=== PATIENT | male | born 1965 | race Caucasian/White ===

== ENCOUNTER 2022-10-04 07:30 | Observation (INO) ==
[~2022-10-04 07:30] MED LIST: Buffered Lidocaine 1% SYRIN 1 ml INTRADERM ONE; HYDROcodone/ACETAMIN 5/325 mg TAB PO PRN; Lactated Ringers 1000 ml BAG 1,000 ML IV SCH; Metoclopramide 5 MG/ML VIAL (10 mg) IV PRN; Naloxone 0.4 mg VIAL 0.4 mg/ml 1 ml VIAL IV PRN; Ondansetron 4 mg VIAL 2 MG/ML 2 ml VIAL IV PRN
[2022-10-04] MEDS ORDERED: ceFAZolin *3* GM in NS PREMIX 3 GM/100 ML BAG IV ONE (08:31)
[2022-10-04 08:58] LABS: Rapid COVID-19 Molecular Undetected (Undetected)
[2022-10-04] MEDS ORDERED: Carbidopa/Levodop 25/100 MG TAB PO ONE ×2 (09:00→13:00)
[2022-10-04] MEDS ORDERED: Propofol 10 MG/ML 20 ML BTL ONE ×2 (09:02→12:10)
[2022-10-04] MEDS ORDERED: Lidocaine 2% PF 5 ML VIAL ONE (09:05)
[2022-10-04] MEDS ORDERED: Dexamethasone IV 4 MG/ML VIAL 1 ml VIAL ONE (10:42)
[2022-10-04] MEDS ORDERED: Midazolam 2 mg/2 ml VIAL 1 mg/ml 2 ml VIAL (2 mg) ONE (10:42)
[2022-10-04] MEDS ORDERED: ROPIVACAINE 5 MG/ML 30 ML BTL (0.5%) ONE (10:42)
[2022-10-04] MEDS ORDERED: fentaNYL 100 mcg/2 ml 50 MCG/ML VIAL ONE ×3 (10:42→14:31)
[2022-10-04] MEDS ORDERED: Carbidopa/Levodop CR 50/200 TAB.CR PO ONE (11:00)
[2022-10-04] MEDS ORDERED: fentaNYL 250 mcg/5 ml 50 MCG/ML 5 ml VIAL (250 MCG) ONE (11:02)
[2022-10-04] MEDS ORDERED: HYDROmorphone 0.5 MG/0.5 ML SYRINGE ONE (11:46)
[2022-10-04] MEDS ORDERED: Glycopyrrolate IV 0.2 MG/ML 1 ML VIAL ONE (11:49)
[2022-10-04] MEDS ORDERED: Ondansetron 4 mg VIAL 2 MG/ML 2 ml VIAL ONE (11:50)
[2022-10-04] MEDS ORDERED: Sterile Water for Inj 10 ML ONE (11:52)
[2022-10-04] MEDS ORDERED: Ondansetron 4 mg VIAL 2 MG/ML 2 ml VIAL IV PRN (14:30)
[2022-10-04] MEDS ORDERED: Ondansetron ODT 4 mg TAB 4 MG TAB PO PRN (14:30)
[2022-10-04] MEDS ORDERED: Lactulose 30 ml UDC PO PRN (14:30)
[2022-10-04] MEDS ORDERED: Morphine 2 MG/ML SYRINGE IV PRN (14:30)
[2022-10-04] MEDS ORDERED: Magnesium Hydroxide LIQ 30 ML UDC PO PRN (14:30)
[2022-10-04] MEDS ORDERED: HYDROcodone/ACETAMIN 5/325 mg TAB ONE (14:31)
[2022-10-04] MEDS: fentaNYL 100 mcg/2 ml 50 MCG/ML VIAL IV PRN ×4 (14:35→15:07)
[2022-10-04] MEDS ORDERED: Lactated Ringers 1000 ml BAG 1,000 ML IV SCH (15:00)
[2022-10-04] MEDS ORDERED: Albuterol HFA INHALER 8 gm MDI INH PRN (17:49)
[2022-10-04] MEDS: Carbidopa/Levodop CR 50/200 TAB.CR PO SCH ×2 (18:22→21:21)
[2022-10-04] MEDS: ceFAZolin 1 GM ADVAN 1 GM in NS 0.9% 50 ML 50 ML IVPB SCH (19:41)
[2022-10-04] MEDS ORDERED: Venlafaxine XR 75 mg PO SCH (21:00)
[2022-10-04] MEDS: Magnesium Hydroxide LIQ 30 ML UDC PO SCH (21:18)
[2022-10-04] MEDS: Carbidopa/Levodop 25/100 MG TAB PO SCH (21:21)
[2022-10-04] MEDS: DEUTETRABENAZINE 9 MG PO SCH (21:23)
[2022-10-05] MEDS: ceFAZolin 1 GM ADVAN 1 GM in NS 0.9% 50 ML 50 ML IVPB SCH ×2 (03:10→14:00)
[2022-10-05 05:59] LABS: Hematocrit 37.4 % (38-53); Hemoglobin 13.1 g/dL (13.2-16.3); Mean Platelet Volume 9.3 fL (7.5-11.2); Platelet Count 137 10^3/uL (150-450)
[2022-10-05 06:22] LABS: Calcium 8.7 mg/dL (8.6-10.3); Creatinine, Serum 0.78 mg/dL (0.67-1.17); Potassium 4.4 mmol/L (3.5-5.0); eGFR CKD-EPI 102.7 (>60)
[2022-10-05] MEDS ORDERED: Vitamin THERAPEUTIC TAB PO SCH (09:00)
[2022-10-05] MEDS: Magnesium Hydroxide LIQ 30 ML UDC PO SCH (09:50)
[2022-10-05] MEDS: Carbidopa/Levodop CR 50/200 TAB.CR PO SCH ×2 (09:53→14:04)
[2022-10-05] MEDS: Carbidopa/Levodop 25/100 MG TAB PO SCH ×2 (09:54→14:04)
[2022-10-05 10:01] VITALS: BP 120/74
[2022-10-05] MEDS: DEUTETRABENAZINE 9 MG PO SCH (10:15)
== END 2022-10-05 14:28 | disposition home or self-care (01) ==
LOC: AA 08:06 → INTOOBSV 08:06 → SSU 15:52
PROVIDERS: ADMIT Orthopaedic Surgery Adult Reconstructive Orthopaedic Surgery; ATTEND Orthopaedic Surgery Adult Reconstructive Orthopaedic Surgery

== ENCOUNTER 2024-01-03 11:30 | Observation (INO) ==
[~2024-01-03 11:30] MED LIST changes: -Buffered Lidocaine 1% SYRIN 1 ml INTRADERM ONE; -HYDROcodone/ACETAMIN 5/325 mg TAB PO PRN; -Lactated Ringers 1000 ml BAG 1,000 ML IV SCH; +NS 0.45% 1000 ml BAG 1,000 ML IV SCH
[2024-01-03] MEDS ORDERED: ceFAZolin 1 GM in Dextrose 1 GM/50 ML BAG ONE (12:06)
[2024-01-03] MEDS ORDERED: ceFAZolin 2 GM PREMIX 2 GM/50 ML BAG ONE (12:06)
[2024-01-03] MEDS ORDERED: Tranexamic Acid 1 GM/100ML BAG 2,000 MG/200 ML BAG IV ONE (12:07)
[2024-01-03 12:09] LABS: Rapid COVID-19 Molecular Undetected (Undetected)
[2024-01-03] MEDS ORDERED: Midazolam 2 mg/2 ml VIAL 1 mg/ml 2 ml VIAL (2 mg) ONE ×2 (12:41→13:28)
[2024-01-03] MEDS ORDERED: fentaNYL 100 mcg/2 ml 50 MCG/ML VIAL ONE ×5 (12:41→17:29)
[2024-01-03] MEDS ORDERED: Lidocaine 2% PF 5 ML VIAL ONE (12:43)
[2024-01-03] MEDS ORDERED: Propofol 10 MG/ML 20 ML BTL ONE (12:43)
[2024-01-03] MEDS: Carbidopa/Levodop 10/100 MG TAB PO ONE ×2 (12:54→18:24)
[2024-01-03] MEDS ORDERED: ROPIVACAINE 5 MG/ML 30 ML BTL (0.5%) ONE ×2 (13:27→13:52)
[2024-01-03] MEDS ORDERED: Rocuronium 50 mg VIAL 10 mg/ml 5 ml VIAL (50 mg) ONE (15:09)
[2024-01-03] MEDS ORDERED: HYDROmorphone 0.5 MG/0.5 ML SYRINGE ONE ×2 (15:15→16:33)
[2024-01-03] MEDS ORDERED: Dexamethasone IV 4 MG/ML VIAL 1 ml VIAL ONE ×2 (15:17)
[2024-01-03] MEDS ORDERED: Ondansetron 4 mg VIAL 2 MG/ML 2 ml VIAL ONE (15:17)
[2024-01-03] MEDS ORDERED: Ondansetron ODT 4 mg TAB 4 MG TAB PO PRN (15:48)
[2024-01-03] MEDS ORDERED: Lactulose 30 ml UDC PO PRN (15:48)
[2024-01-03] MEDS ORDERED: Magnesium Hydroxide LIQ 30 ML UDC PO PRN (15:48)
[2024-01-03] MEDS ORDERED: Morphine 2 MG/ML SYRINGE IV PRN (15:48)
[2024-01-03] MEDS ORDERED: Ondansetron 4 mg VIAL 2 MG/ML 2 ml VIAL IV PRN (15:48)
[2024-01-03] MEDS ORDERED: Calcium Carb (TUMS) 500 mg CHEW TAB PO PRN (15:48)
[2024-01-03] MEDS: fentaNYL 100 mcg/2 ml 50 MCG/ML VIAL IV PRN (17:30)
[2024-01-03] MEDS: Acetaminophen IV 1 GM/100ML 1,000 MG/100 ML BAG IV ONE (18:23)
[2024-01-03] MEDS: Buffered Lidocaine 1% SYRIN 1 ml INTRADERM ONE (18:23)
[2024-01-03] MEDS: Scopolamine 1 mg/72hr PATCH TRANSDERM ONE (18:24)
[2024-01-03] MEDS: Lactated Ringers 1000 ml BAG 1,000 ML IV SCH ×2 (18:24→18:33)
[2024-01-03] MEDS ORDERED: Fluticasone NASAL SPRAY 50MCG 16 gm SPRAY BTL INTRANASAL PRN (18:35)
[2024-01-03] MEDS ORDERED: Albuterol HFA INHALER 8 gm MDI INH PRN (18:35)
[2024-01-03] MEDS ORDERED: Carbidopa/Levodop 10/100 MG TAB PO SCH (21:00)
[2024-01-03] MEDS: Magnesium Hydroxide LIQ 30 ML UDC PO SCH (21:20)
[2024-01-03] MEDS: Venlafaxine XR 75 mg PO SCH (21:23)
[2024-01-03] MEDS: DEUTETRABENAZINE 9 MG PO SCH (21:51)
[2024-01-03] MEDS: ceFAZolin 2 GM PREMIX 2 GM/50 ML BAG IV SCH (22:40)
[2024-01-03] MEDS: Carbidopa/Levodop 10/100 MG TAB PO SCH (22:41)
[2024-01-04 06:22] LABS: Hematocrit 39.4 % (38-53); Hemoglobin 13.8 g/dL (13.2-16.3); Mean Platelet Volume 9.9 fL (7.5-11.2); Platelet Count 156 10^3/uL (150-450)
[2024-01-04] MEDS: Mometasone/Formoter 200/5 MDI INH SCH (07:04)
[2024-01-04 07:06] LABS: Calcium 8.5 mg/dL (8.6-10.3); Creatinine, Serum 0.72 mg/dL (0.67-1.17); Potassium 4.1 mmol/L (3.5-5.0); eGFR CKD-EPI 104.6 (>60)
[2024-01-04] MEDS: Vitamin THERAPEUTIC TAB PO SCH (08:40)
[2024-01-04] MEDS: Carbidopa/Levodop 10/100 MG TAB PO SCH (08:41)
[2024-01-04 13:56] VITALS: BP 141/82
== END 2024-01-04 15:05 | disposition home or self-care (01) ==
LOC: OR 11:30 → SSU 11:30
PROVIDERS: ADMIT Orthopaedic Surgery Adult Reconstructive Orthopaedic Surgery; ATTEND Orthopaedic Surgery Adult Reconstructive Orthopaedic Surgery